=== PATIENT | female | born 1965 | race Caucasian/White ===

== ENCOUNTER 2017-09-08 13:13 | Emergency (ER) | payer OTHER ==
[~2017-09-08] VITALS: Ht 160 cm; Wt 83.6 kg
[~2017-09-08 13:13] MED LIST: ACT30 PO; AMLODIPINE10 M1 PO; AMO500 PO; ASPIR 8181 MG PO; ATORVASTATIN CA10 M1 PO; BENAZEPRIL HCL/1 TAB PO; BIA500 PO; GLIPIZIDE5 MG; LOPRESSOR100 MG PO; METFORMIN HCL1000 MG PO; PRI20 PO
[2017-09-08 13:28] VITALS: BP 123/98; Ht 160 cm; Wt 83.6 kg
== END 2017-09-08 15:29 | disposition home or self-care (01) ==
LOC: ED 13:13
DX: J02.0 Streptococcal pharyngitis (principal); I10 Essential (primary) hypertension; E11.9 Type 2 diabetes mellitus without complications
CPT/HCPCS: J1100

== ENCOUNTER 2018-03-12 09:29 | Inpatient (IN) | payer OTHER ==
[~2018-03-12] VITALS: Ht 160 cm; Wt 82.6 kg
[~2018-03-12 09:29] MED LIST changes: +AMLODIPINE BES2.5 M1; -AMLODIPINE10 M1 PO; +GLIPIZIDE2.5 M1; -GLIPIZIDE5 MG; -LOPRESSOR100 MG PO; +[UNRECOGNIZED DRUG - CODE]
[2018-03-12 10:41] LABS: BASOPHIL % 0.4 % (0-2); PLATELET COUNT 271 x10^3mcL (130-400); RED CELL DISTRIBUTION WIDTH 13.6 % (11.5-14.5)
[2018-03-12 10:50] LABS: CALCIUM 9.4 mg/dL (8.5-10.1); CARBON DIOXIDE 27.1 mmol/L (21-32); CHLORIDE SERUM 100 mmol/L (98-107); CREATININE SERUM 0.7 mg/dL (0.6-1.0); GFR1 > 60 mL/min; GLUCOSE SERUM 182 mg/dL (74-106); POTASSIUM SERUM 3.8 mmol/L (3.5-5.1); SODIUM SERUM 137 mmol/L (136-145)
[2018-03-12 10:55] LABS: AMPHETAMINE QUAL UR NONE DETECTED (See below)
[2018-03-12 10:55] LABS: ALBUMIN 4.1 g/dL (3.4-5.0); ALKALINE PHOSPHATASE 125 U/L (46-116); ALT/SGPT 20 U/L (14-59); AST/SGOT 14 U/L (15-37); BILIRUBIN TOTAL 0.6 mg/dL (0.20-1.00); LIPASE 126 IU/L (73-393); TOTAL PROTEIN, SERUM 8.1 g/dL (6.4-8.2)
[2018-03-12 15:57] VITALS: BP 179/88
[2018-03-12 16:07] VITALS: Ht 160 cm; Wt 82.6 kg
[2018-03-12 16:33] LABS: MAGNESIUM 2.1 mg/dL (1.8-2.4)
[2018-03-12 16:34] LABS: CHOLESTEROL/HDL RATIO 6.1
[2018-03-12 17:59] VITALS: BP 142/83
[2018-03-12 21:30] VITALS: BP 142/68
[2018-03-13 06:15] VITALS: BP 108/67
[2018-03-13 06:31] LABS: CALCIUM 8.5 mg/dL (8.5-10.1); CARBON DIOXIDE 30.7 mmol/L (21-32); CHLORIDE SERUM 101 mmol/L (98-107); CREATININE SERUM 0.9 mg/dL (0.6-1.0); GFR1 > 60 mL/min; GLUCOSE SERUM 107 mg/dL (74-106); POTASSIUM SERUM 3.9 mmol/L (3.5-5.1); SODIUM SERUM 140 mmol/L (136-145)
[2018-03-13 07:03] LABS: BASOPHIL % 0.6 % (0-2); PLATELET COUNT 254 x10^3mcL (130-400)
[2018-03-13 08:41] VITALS: BP 97/54
[2018-03-13 09:05] LABS: microscopic required? NO
[2018-03-13 09:56] LABS: urine erythrocyte NEGATIVE (NEGATIVE)
[2018-03-13 12:09] VITALS: BP 108/64
[2018-03-13 15:29] VITALS: BP 108/64
== END 2018-03-13 16:08 | disposition home or self-care (01) | DRG 315 ==
LOC: ED 09:29 → DU 15:03
PROVIDERS: Emergency Medicine; ADMIT Internal Medicine
DX: I27.20 Pulmonary hypertension, unspecified (principal); I24.9 Acute ischemic heart disease, unspecified; B02.29 Other postherpetic nervous system involvement; R07.81 Pleurodynia; E11.65 Type 2 diabetes mellitus with hyperglycemia; I11.9 Hypertensive heart disease without heart failure; I25.10 Atherosclerotic heart disease of native coronary artery without angina pectoris; G47.33 Obstructive sleep apnea (adult) (pediatric); D75.1 Secondary polycythemia; E78.5 Hyperlipidemia, unspecified; E66.9 Obesity, unspecified; Z68.32 Body mass index [BMI] 32.0-32.9, adult; Z79.84 Long term (current) use of oral hypoglycemic drugs
CPT/HCPCS: 82962; 83880; J1885; J2270; J2405; J2785; J3010; Q0092; Q9967